=== PATIENT | male | born 2000 | race Caucasian/White ===

== ENCOUNTER 2023-10-07 11:08 | Day surgery (SDC) | payer SELFPAY ==
[2023-10-07 11:13] VITALS: BMI 31.9
[2023-10-07] MEDS ORDERED: ACETAMINOPHEN INJECTION 100 ML IVPB ONE (12:42)
[2023-10-07] MEDS ORDERED: ONDANSETRON 4 MG/2 ML VIAL ONE (12:42)
[2023-10-07] MEDS: SODIUM CHLORIDE 0.9% 500 ML INFUS.BAG IV ONE (12:48)
[2023-10-07] MEDS: ONDANSETRON 4 MG/2 ML VIAL IVPUSH ONE (12:48)
[2023-10-07] MEDS: ACETAMINOPHEN 1000 MG/100 ML BAG IVPB ONE (12:48)
[2023-10-07 12:49] LABS: BASO % 0.3 % (0-2.0); EOS % 0.2 % (0-4.5); HEMATOCRIT 45.8 % (35.4-49); HEMOGLOBIN 15.6 GM/dL (11.7-16.9); LYMPH % 7.8 % (8-40); MCH 28.1 pg (25.7-33.7); MEAN CELL VOLUME 82.6 fl (80-96); MEAN PLT VOLUME 6.7 fl (7.5-11.1); MONO % 6.3 % (3.8-10.2); NEUT % 85.4 % (42.8-82.8); PLATELET COUNT 318 10^3/uL (134-434); RBC 5.55 M/mm3 (4.00-5.60); WHITE BLOOD COUNT 12.5 K/mm3 (4.0-10.0)
[2023-10-07 12:56] LABS: INR 1.05 (0.83-1.09); PROTHROMBIN TIME (PATIENT) 11.9 SEC (9.7-13.0)
[2023-10-07 12:59] LABS: ACTIVATED PTT 30.2 SECONDS (25.2-36.5)
[2023-10-07 13:09] LABS: POTASSIUM 3.8 mmol/L (3.5-5.1)
[2023-10-07 13:11] LABS: CALCIUM 9.2 mg/dL (8.5-10.1)
[2023-10-07 13:12] LABS: ALBUMIN 4.4 g/dl (3.4-5.0); BLOOD UREA NITROGEN 19.5 mg/dL (7-18)
[2023-10-07 13:15] LABS: CREATININE 0.9 mg/dL (0.55-1.3)
[2023-10-07 13:17] LABS: BILIRUBIN,TOTAL 1.2 mg/dL (0.2-1)
[2023-10-07 15:38] LABS: EPI CELLS 2.9 /uL (0-25.1); PH,URINE 6.5 (5.0-8.0); URINE APPEARANCE CLEAR; URINE BILIRUBIN NEGATIVE (NEGATIVE); URINE COLOR YELLOW; URINE GLUCOSE (UA) NEGATIVE (NEGATIVE); URINE KETONE NEGATIVE (NEGATIVE); URINE LEUK ESTERASE NEGATIVE (NEGATIVE); URINE NITRITE NEGATIVE (NEGATIVE); URINE PROTEIN NEGATIVE (NEGATIVE); URINE RBC 8.9 /uL (0-23.9); URINE UROBILINOGEN 0.2 mg/dL (0.2-1.0)
[2023-10-07 15:39] LABS: URINE BACTERIA 4.7 /uL (0-1359)
[2023-10-07] MEDS ORDERED: BUPIVACAINE HCL/PF 0.25% (2.5MG/ML) 10 ML VIAL ONE (15:51)
[2023-10-07] MEDS: CEFOXITIN SODIUM 2 GM in DEXTROSE 5%-WATER - 100 ML IVPB ONE (16:20)
[2023-10-07] MEDS ORDERED: SUCCINYLCHOLINE CHLORIDE 200 MG/10 ML SYRINGE ONE (16:49)
[2023-10-07] MEDS ORDERED: PROPOFOL 40 ML ONE (16:49)
[2023-10-07] MEDS ORDERED: ROCURONIUM BROMIDE 50 MG/5 ML SYRINGE ONE (16:50)
[2023-10-07] MEDS ORDERED: MIDAZOLAM HCL 2 MG/2 ML SINGLE DOSE VIAL ONE (16:50)
[2023-10-07] MEDS ORDERED: LACTATED RINGERS SOLUTION 1,000 ML IV SCH (17:00)
[2023-10-07] MEDS: BUPIVACAINE HCL/PF 0.25% (2.5MG/ML) 10 ML VIAL IJ ONE (17:28)
[2023-10-07] MEDS ORDERED: SUGAMMADEX SODIUM 200 MG/2 ML VIAL ONE (17:48)
[2023-10-07] MEDS ORDERED: morphine SULFATE 4 MG/ML VIAL IVPUSH PRN (18:03)
[2023-10-07] MEDS: LACTATED RINGERS SOLUTION 1,000 ML IV SCH (19:34)
[2023-10-07] MEDS: IBUPROFEN 600 MG TABLET (FP) PO SCH (19:34)
[2023-10-07] MEDS: ACETAMINOPHEN 500 MG TABLET (FP) PO SCH (19:35)
[2023-10-07 23:16] VITALS: RESP 20
[2023-10-08 09:02] LABS: BASO % 0.2 % (0-2.0); HEMATOCRIT 41.6 % (35.4-49); LYMPH % 8.6 % (8-40); MCH 28.3 pg (25.7-33.7); MCHC 33.7 g/dl (32.0-35.9); MEAN PLT VOLUME 7.4 fl (7.5-11.1); MONO % 5.2 % (3.8-10.2); PLATELET COUNT 282 10^3/uL (134-434); RBC 4.95 M/mm3 (4.00-5.60); RDW 14.8 % (11.9-15.9); WHITE BLOOD COUNT 10.3 K/mm3 (4.0-10.0)
[2023-10-08 09:11] LABS: POTASSIUM 4.2 mmol/L (3.5-5.1)
[2023-10-08 09:13] LABS: CALCIUM 9.1 mg/dL (8.5-10.1)
[2023-10-08 09:14] LABS: BLOOD UREA NITROGEN 13.3 mg/dL (7-18)
[2023-10-08 09:17] LABS: CREATININE 0.8 mg/dL (0.55-1.3)
[2023-10-08 11:50] VITALS: BP 121/65; PULSE 62; TEMP 97.6
== END 2023-10-08 10:59 | disposition home or self-care (01) ==
LOC: JER 11:08 → SUATTDRO 15:53 → JASUSAT 15:53 → J8W 20:27 → JASUSAT 10-08 10:59
PROVIDERS: ATTEND Nurse Practitioner Acute Care
PROC: 0DTJ4ZZ Resection of Appendix, Percutaneous Endoscopic Approach (ICD-10-PCS; principal; 2023-10-07 14:30)
DX: K35.80 Unspecified acute appendicitis (principal)
CPT/HCPCS: 0241U-QW; 36415; 74177-TC; 80048; 80053; 81003; 85025; 85610; 85730; 86850; 86900; 86901; 87086; 88304-TC; 94760; 99285-25; J0131; Q9967